=== PATIENT | female | born 1995 | race Two or more races ===

== ENCOUNTER 2021-04-24 10:44 | Emergency (ER) | payer OTHER ==
[~2021-04-24] VITALS: Ht 172.7 cm; Wt 84.8 kg
[~2021-04-24 10:44] MED LIST: OBSTETRIX ONE1 EACH PO
[2021-04-24] MEDS ORDERED: PYRIDIUM100 MG PO (13:52)
[2021-04-24] MEDS ORDERED: CEFUROXIME500 MG PO (13:52)
[2021-05-04] MEDS ORDERED: ACETAMINOPHEN650 M2 (21:48)
== END 2021-04-24 14:14 | disposition home or self-care (01) ==
LOC: ER 10:44
DX: N39.0 Urinary tract infection, site not specified (principal)

== ENCOUNTER 2021-07-13 14:58 | Inpatient (IN) | payer OTHER ==
[~2021-07-13] VITALS: Ht 172.7 cm; Wt 3.6 kg
[~2021-07-13 14:58] MED LIST changes: +ACETAMINOPHEN650 M2; +CEFUROXIME500 MG PO; +PYRIDIUM100 MG PO
== END 2021-07-21 11:48 | disposition home or self-care (01) | DRG 785 ==
LOC: O/R 07-18 06:29 → OB/GYN 07-18 14:05
PROVIDERS: ADMIT Obstetrics & Gynecology; ATTEND Obstetrics & Gynecology
PROC: 0UB70ZZ Excision of Bilateral Fallopian Tubes, Open Approach (ICD-10-PCS; 2021-07-18)
PROC: 4A1HXFZ Monitoring of Products of Conception, Cardiac Rhythm, External Approach (ICD-10-PCS; 2021-07-18)
PROC: 10D00Z1 Extraction of Products of Conception, Low, Open Approach (ICD-10-PCS; principal; 2021-07-18 16:00)
DX: O34.211 Maternal care for low transverse scar from previous cesarean delivery (principal); Z30.2 Encounter for sterilization; Z37.0 Single live birth; Z3A.39 39 weeks gestation of pregnancy; Z53.29 Procedure and treatment not carried out because of patient's decision for other reasons